=== PATIENT | male | born 1950 | race Caucasian/White ===

== ENCOUNTER 2020-02-18 09:15 | Outpatient (CLI) | payer MEDICARE, OTHER ==
[2020-02-18 13:00] LABS: #Basophils 0.1 thou/uL (0.0-0.2); #Eosinphils 0.4 thou/uL (0.0-0.7); #Lymphocytes 2.6 thou/uL (1.20-3.40); #Monocytes 0.6 thou/uL (0.11-0.59); %Basophils 0.7 % (0.0-1.0); %Eosinophils 4.5 % (0.0-10.0); %Lymphocytes 30.1 % (21.0-51.0); %Monocytes 6.8 % (0.0-10.0); %Neutrophils 57.9 % (42.0-75.0); Hemoglobin 15.9 g/dL (14.0-18.0); Mean Corpuscular HGB CONC 34.8 g/dL (32.0-36.0); Mean Corpuscular Hemoglobin 30.6 pg (27.0-31.0); Mean Corpuscular Volume 87.8 fL (78.0-98.0); Mean Platelet Volume 6.9 fL (7.4-10.4); Platelet Count 234 thou/uL (130-400); RBC Distribution Width 12.3 % (11.5-14.5); Red Blood Cell (RBC) Count 5.19 mill/uL (4.70-6.10); White Blood Cell (WBC) Count 8.6 thou/uL (4.8-10.8)
--- NOTE | 2020-02-18 13:37 | RAD ---
CHEST ONE VIEW: 02/18/20 at 1:41 p.m. HISTORY: Preoperative evaluation. FINDINGS: The heart size is normal. The aorta is tortuous. The lungs are expanded without lobar consolidation, pneumothoraces or pleural effusions. IMPRESSION: No acute process. POS: [facility]
[2020-02-18 13:56] LABS: ALT (SGPT) 19 U/L (8-55); AST (SGOT) 22 U/L (5-34); Albumin 4.2 g/dL (3.4-4.8); Alkaline Phosphatase 74 U/L (40-110); Anion Gap 11 mmol/L (10-20); BUN (Urea Nitrogen) 19 mg/dL (8.4-25.7); Bilirubin, Total 0.6 mg/dL (0.2-1.2); Calc. Creatinine Clearance 0 mL/min (70-130); Calcium 9.2 mg/dL (7.8-10.44); Carbon Dioxide 26 mmol/L (23-31); Chloride 107 mmol/L (98-107); Estimated GFR-MDRD 80; Globulin 2.6 g/dL (2.4-3.5); Glucose 102 mg/dL (80-115); Potassium 4.6 mmol/L (3.5-5.1); Protein, Total 6.8 g/dL (5.8-8.1); Sodium 139 mmol/L (136-145)
[2020-02-18 18:12] LABS: SARS-CoV-2 MS2 Positive; SARS-CoV-2 N Gene Negative; SARS-CoV-2 S Gene Negative; SARS-CoV-2 orf1ab Negative
== END 2020-02-18 09:16 | disposition home or self-care (01) ==
LOC: LABBT 09:15
PROVIDERS: ATTEND Internal Medicine Cardiovascular Disease
DX: Z01.818 Encounter for other preprocedural examination (principal); Z11.59 Encounter for screening for other viral diseases; R94.39 Abnormal result of other cardiovascular function study
CPT/HCPCS: 71045; 80053; 85025; 93005; U0003; 87635; 93010

== ENCOUNTER 2020-02-21 11:09 | Inpatient (IN) | payer MEDICARE, OTHER ==
[2020-02-18 12:04] VITALS: BMI 27.3
[~2020-02-21 11:09] MED LIST: Iopamidol 370 76% 100 ML VIAL ONE; Iopamidol 370 76% 50 ML VIAL FS ONE
[2020-02-21] MEDS ORDERED: Heparin 10,000 UNITS/1 ML VIAL ONE (13:24)
[2020-02-21] MEDS ORDERED: Fentanyl 100 MCG/2 ML VIAL ONE (13:50)
[2020-02-21] MEDS ORDERED: Midazolam HCl 2 mg/2 ml Vial ONE (13:50)
[2020-02-21] MEDS ORDERED: Protamine Sulfate 50 MG/5 ML VIAL ONE (14:13)
[2020-02-21] MEDS ORDERED: Nitroglycerin 0.4 MG TAB (25 Tab Bottle) SL PRN ×2 (14:39→14:41)
[2020-02-21] MEDS ORDERED: Sodium Chloride 0.9% 200 ML IV PRN ×2 (14:39→14:41)
[2020-02-21] MEDS ORDERED: Acetaminophen/Codeine 30-300mg Tablet PO PRN ×4 (14:39→14:41)
[2020-02-21] MEDS ORDERED: Sodium Chloride 0.9% 1,000 ML IV SCH (14:45)
[2020-02-21] MEDS ORDERED: Nitroglycerin 0.4 MG TAB (25 Tab Bottle) ONE (15:28)
[2020-02-21] MEDS ORDERED: Communication Order-Pharmacy FS SCH (15:39)
[2020-02-21] MEDS ORDERED: Morphine 2 MG/ML SYRINGE ONE (15:43)
[2020-02-21] MEDS ORDERED: Nitroglycerin 0.4 MG TAB (25 Tab Bottle) SL SCH (15:45)
[2020-02-21 15:50] LABS: Cardiac Risk 4.9 (Less than 4.5)
[2020-02-21] MEDS ORDERED: Docusate 100 MG CAP PO SCH (21:00)
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
[2020-02-22] MEDS ORDERED: Non-Formulary Item 1 EACH (Omega-3 Fatty Acids/Fish Oil [Fish Oil 1,000 Mg Capsule] 1 CAP PO SCH (09:00)
[2020-02-22] MEDS ORDERED: Non-Formulary Item 1 EACH (Glucos Sul 2kcl/Msm/Chond/C/Mn [Glucosamine Chondroitin Cap] 1 PO SCH (09:00)
[2020-02-22] MEDS ORDERED: Non-Formulary Item 1 EACH (Multivit-Min/Fa/Lycopen/Lutein [Centrum Silver Men Tablet] 1 T PO SCH (09:00)
[2020-02-22] MEDS ORDERED: Aspirin 81 mg Enteric Coated Tablet PO SCH (09:00)
[2020-02-22] MEDS ORDERED: Meloxicam 15 MG TAB PO SCH (09:00)
[2020-02-22] MEDS ORDERED: Papaverine 60 MG/2 ML VIAL ONE (09:16)
[2020-02-22] MEDS ORDERED: Protamine Sulfate 250 MG/25 ML VIAL ONE (09:16)
[2020-02-22] MEDS ORDERED: Heparin 5,000 UNITS/ML VIAL ONE (09:16)
[2020-02-22] MEDS ORDERED: Dexamethasone 20 MG/5 ML VIAL ONE (09:16)
[2020-02-22] MEDS ORDERED: Thrombin 5000 UNITS/5 ML VIAL ONE (09:16)
[2020-02-22] MEDS ORDERED: Sodium Bicarb 50 MEQ/50 ML Abboject 8.4% SYRINGE ONE (09:16)
[2020-02-22] MEDS ORDERED: Vecuronium 10 MG VIAL ONE ×3 (09:16→11:01)
[2020-02-22] MEDS ORDERED: Magnesium Sulfate 1 GM/2 ML VIAL ONE (09:16)
[2020-02-22] MEDS ORDERED: Ondansetron PF 4 MG/2 ML Vial ONE (09:16)
[2020-02-22] MEDS ORDERED: Aminocaproic Acid 5 GM/20 ML VIAL ONE (09:16)
[2020-02-22] MEDS ORDERED: Calcium Chloride 1 GM/10 ML Abboject SYRINGE ONE (09:16)
[2020-02-22] MEDS ORDERED: Ketorolac Tromethamine 30 MG/ML VIAL ONE (09:16)
[2020-02-22] MEDS ORDERED: Heparin 30,000 units/30 ml VIAL ONE (09:16)
[2020-02-22] MEDS ORDERED: EPHEDRINE 25 MG/5 ML SYRINGE ONE (09:16)
[2020-02-22] MEDS ORDERED: Potassium Chloride 60 MEQ/30 ML VIAL ONE (09:16)
[2020-02-22] MEDS ORDERED: Nitroglycerin 50 MG/250 ML BOT ONE (09:16)
[2020-02-22] MEDS ORDERED: Glycopyrrolate 0.2 MG/ML 5 ML SYRINGE ONE (09:16)
[2020-02-22] MEDS ORDERED: Lidocaine 2% PF 5 ML VIAL ONE (09:16)
[2020-02-22] MEDS ORDERED: Lidocaine 1% PF 5 ML VIAL ONE ×2 (09:16)
[2020-02-22] MEDS ORDERED: Cardioplegic Soln 1,000 ML BAG ONE (09:16)
[2020-02-22] MEDS ORDERED: PHENYLEPHRINE-NS 100 MCG/ML 10 ML SYRINGE ONE (09:16)
[2020-02-22] MEDS ORDERED: CEFAZOLIN 2 GM in Premix Bag 1 BAG IVPB SCH (10:30)
[2020-02-22] MEDS ORDERED: Midazolam HCl 2 mg/2 ml Vial ONE ×2 (10:37→11:01)
[2020-02-22] MEDS ORDERED: Albumin 5% 500 ML ONE (10:38)
[2020-02-22] MEDS ORDERED: Heparin 10,000 UNITS/1 ML VIAL 30,000 UNITS, Admixture Fee 1 EACH in Sodium Chloride 0.... IVPB SCH (10:45)
[2020-02-22] MEDS ORDERED: Midazolam HCl 5 mg/5 ml Vial ONE (11:01)
[2020-02-22] MEDS ORDERED: Fentanyl 100 MCG/2 ML VIAL ONE (11:01)
[2020-02-22] MEDS ORDERED: Dexmedetomidine 200 MCG/2 ML VIAL ONE (11:01)
[2020-02-22] MEDS ORDERED: Morphine 2 MG/ML SYRINGE SLOW IVP PRN (12:30)
[2020-02-22] MEDS ORDERED: Norepinephrine 8 MG/0.9% NS 250 ML IVPB PRN (12:30)
[2020-02-22] MEDS ORDERED: Post-Op Insulin Drip Protocol IVPB ONE (12:30)
[2020-02-22] MEDS ORDERED: Promethazine HCl 25 MG/ML VIAL IM PRN (12:30)
[2020-02-22] MEDS ORDERED: Bisacodyl 5 MG TAB PO PRN (12:30)
[2020-02-22] MEDS ORDERED: Acetaminophen 325 MG TAB PO PRN (12:30)
[2020-02-22] MEDS ORDERED: hydrALAZINE 20 MG/ML VIAL SLOW IVP PRN (12:30)
[2020-02-22] MEDS ORDERED: Nitroglycerin 50 MG/250 ML BOT 250 ML IVPB PRN (12:30)
[2020-02-22] MEDS ORDERED: Fentanyl 100 MCG/2 ML VIAL SLOW IVP PRN ×2 (12:30)
[2020-02-22] MEDS ORDERED: Hetastarch 6% 500 ML 500 ML IVPB PRN (12:30)
[2020-02-22] MEDS ORDERED: Ondansetron PF 4 MG/2 ML Vial IVP PRN (12:30)
[2020-02-22] MEDS ORDERED: niCARdipine 25 MG in Sodium Chloride 0.9% 250 ML 250 ML IVPB PRN (12:30)
[2020-02-22] MEDS ORDERED: Bisacodyl 10 MG SUPP PR PRN (12:30)
[2020-02-22] MEDS ORDERED: Potassium Chloride 20 MEQ/100 ML PREMIX BAG IVPB PRN (12:30)
[2020-02-22] MEDS ORDERED: Mag-Al 1200 mg/1200 mg/30 ML UDCUP PO PRN (12:30)
[2020-02-22] MEDS ORDERED: Guaifenesin DM 100-10/5 ML UDCUP PO PRN (12:30)
[2020-02-22] MEDS ORDERED: HUMULIN R 100 UNITS in Sodium Chloride 0.9% 100 ML IVPB SCH (13:41)
[2020-02-22] MEDS ORDERED: Dextrose 50% Abboject 50 ML SYRINGE SLOW IVP PRN (13:41)
[2020-02-22] MEDS ORDERED: Dextrose 5% in Water 1,000 ML IV PRN (13:41)
[2020-02-22] MEDS: Ketorolac Tromethamine 30 MG/ML VIAL IVP SCH ×3 (15:13→23:08)
[2020-02-22] MEDS: Sodium Chloride 0.9% 1,000 ML IV SCH ×2 (15:16→15:17)
[2020-02-22 17:00] LABS: #Eosinphils 0.1 thou/uL (0.0-0.7); #Lymphocytes 1.5 thou/uL (1.20-3.40); #Monocytes 0.8 thou/uL (0.11-0.59); #Neutrophils 16.2 thou/uL (1.40-6.50); %Basophils 0.2 % (0.0-1.0); %Eosinophils 0.8 % (0.0-10.0); %Lymphocytes 8.1 % (21.0-51.0); %Monocytes 4.1 % (0.0-10.0); %Neutrophils 86.8 % (42.0-75.0); Hemoglobin 14.3 g/dL (14.0-18.0); Mean Corpuscular HGB CONC 35.2 g/dL (32.0-36.0); Mean Corpuscular Hemoglobin 30.7 pg (27.0-31.0); Mean Corpuscular Volume 87.2 fL (78.0-98.0); Mean Platelet Volume 6.9 fL (7.4-10.4); Platelet Count 164 thou/uL (130-400); RBC Distribution Width 12.3 % (11.5-14.5); Red Blood Cell (RBC) Count 4.66 mill/uL (4.70-6.10); White Blood Cell (WBC) Count 18.6 thou/uL (4.8-10.8)
[2020-02-22 17:15] LABS: INR-International Normal Ratio 1.3; PTT 29.8 sec (22.9-36.1)
[2020-02-22 17:19] LABS: Anion Gap 12 mmol/L (10-20); BUN (Urea Nitrogen) 17 mg/dL (8.4-25.7); Calc. Creatinine Clearance 112 mL/min (70-130); Calcium 8.5 mg/dL (7.8-10.44); Carbon Dioxide 20 mmol/L (23-31); Chloride 112 mmol/L (98-107); Estimated GFR-MDRD Greater than 90; Glucose 151 mg/dL (80-115); Potassium 4.2 mmol/L (3.5-5.1); Sodium 140 mmol/L (136-145)
[2020-02-22] MEDS: Insulin Regular 300 UNITS/3 ML VIAL SC PRN ×2 (17:42→20:06)
[2020-02-22] MEDS: Docusate 100 MG CAP PO SCH (20:05)
[2020-02-22] MEDS: Atorvastatin Calcium 40 MG TAB PO SCH (20:06)
[2020-02-22] MEDS: HYDROcodone/Acetaminophen 5/325 mg Tablet PO PRN (20:10)
--- NOTE | 2020-02-22 20:12 | RAD ---
PORTABLE CHEST: 02/22/20 INDICATIONS: Postop sternotomy. COMPARISON: 02/18/20. Postop sternotomy changes are now noted. Right sided chest tube. Right sided central line appears ysabel quately positioned. The lung henson appear clear. No infiltrate or vascular congestion. IMPRESSION: Postop sternotomy changes. No acute lung process. POS: [facility]
[2020-02-22] MEDS ORDERED: Atorvastatin Calcium 10 MG TAB PO SCH (21:00)
[2020-02-22] MEDS ORDERED: Famotidine/PF 20 mg/2ml Vial SLOW IVP SCH (21:00)
--- NOTE | 2020-02-22 22:44 | OP ---
DATE OF PROCEDURE: 02/22/2020 PROCEDURES PERFORMED: Coronary artery bypass grafting x3 with right internal mammary artery to the posterolateral branch of the right coronary artery and reverse greater saphenous vein graft from the aorta to the PDA and from the aorta to the right anterior branch of the ramus intermedius. PREOPERATIVE DIAGNOSES: Coronary artery disease with unstable angina. POSTOPERATIVE DIAGNOSES: Coronary artery disease with unstable angina. CREDIT REVIEW MANAGER: Bal Mata MD ANESTHESIA: General endotracheal anesthesia. INDICATIONS: The patient is a 69-year-old man with a strongly positive family history of premature coronary artery disease. Over the last month, he has developed progressively severe epigastric and substernal tightness that was consistent with a class 2 to 3 angina. He is beginning to have frequent episodes of class 4 angina. He had an abnormal stress test and cardiac catheterization demonstrated two-vessel coronary artery disease. He had no significant left main or LAD system disease. He had a significant lesion in a bifurcated ramus, a significant lesion in the mid right coronary artery, and a subtotal long lesion in the proximal portion of the posterolateral branch of his RCA, which corresponds with inferior ischemia on his stress. After discussing treatment options, he is now taken to the operating room for surgical revascularization. FINDINGS: Pump time 66 minutes. Cross-clamp time 31 minutes. Slightly small, but good quality right EVITA with excellent flow. Good quality saphenous vein. The ramus intermedius was about a 2 to 2.5 mm vessel. There was fairly good quality, where it dove intramyocardially. There was heavy hard plaque at the ramus just proximal to its bifurcation point. The PDA was about a 1.5 to 2 mm thick-walled vessel and the posterolateral branch, where it was grafted, where it emerged from the fat pad at AV groove was about a 1.5 mm good quality vessel. The pericardium was closed. NARRATIVE REPORT: After informed consent was obtained, the patient was taken to the operating room, placed in supine position on the operating table. After the induction of general anesthesia, his left greater saphenous vein was ultrasonographically mapped and marked. He was placed in Trendelenburg and his right upper chest was prepped and draped in sterile fashion. A triple lumen central line kit was used to place right subclavian central line by the Seldinger technique. All 3 ports easily aspirated and flushed. The line was secured to the skin with suture. The patient's torso, groins, and lower extremities were prepped and draped in a sterile fashion. The greater saphenous vein was exposed just above the knee on the left side and then endoscopically harvested from there up to the groin. This prepared for use as a graft. The port site was closed in layers of subcutaneous and subcuticular Vicryl. The proximal stab incision for the ligation and division accessed ultimately was treated with Dermabond. A median sternotomy was performed. The right internal mammary artery was mobilized as a skeletonized in-situ graft from beyond its bifurcation up to near its origin from the subclavian artery through an extrapleural exposure. Ultimately, the pleura was opened along the hilum and near the diaphragmatic surface to allow for a tension-free lie of the mammary. The patient was heparinized and the mammary was ligated and divided distally. It had excellent flow. Once papaverine solution had been instilled intraluminally to relieve spasm, with that maneuver the mammary dilated nicely. The mammary bed was inspected for hemostasis and the EVITA retractor was replaced with a [place] retractor. The pericardium was opened and marsupialized. The aorta was palpated and was soft. A double concentric pursestring of 2-0 Ethibond was placed in ascending aorta within the pericardial reflection and a single pursestring was placed in the right atrial appendage. Aortic and venous cannulae were inserted and secured by their pursestrings. The plane between the aorta and the pulmonary artery was developed. Cardiopulmonary bypass was instituted and the patient was systemically cooled. The heart was examined and the vessels to be bypassed were identified. A cruciate incision was made in the right side of the pericardium just anterior to the junction of the inferior caval with the atrium through which the mammary could be passed. An aortic cross-clamp was applied and cardioplegia was administered through an aortic root needle. When arrest have been achieved, attention was turned to the ramus intermedius. It was exposed. At a point where it began to dive intramyocardially just distal some hard plaquing. Proximally the bifurcation point was identified and the anterior branch was opened with a [place] blade and Phuc scissors with the arteriotomy being extended proximally up to the bifurcation point of the ramus. Reverse greater saphenous vein was anastomosed there end-to-side with running 6-0 Prolene suture and the anastomosis was tested by flushing cold cardioplegia down the graft. Attention was then turned to the PDA. It was exposed and opened proximally and grafted in a similar fashion of the saphenous vein in 6-0 Prolene suture. The posterolateral branch of the right coronary artery was then opened near where it emerged on the epicardial surface just distal to the fat pad at the AV groove. The mammary was trimmed to length and spatulated and anastomosed there with running 7-0 Prolene and tacked to the epicardium with 6-0 Prolene. Aortic cross-clamp was placed with a partial occluding clamp and two aortotomies were made in the ascending aorta with a scalpel and punch. The PDA graft was brought along the right side of the heart near the AV groove and anastomosed to the more proximal aortotomy. The ramus graft was brought along the left side of the heart and anastomosed to the more distal aortotomy. Partial occluding clamp was removed and the vein grafts were de-aired and the bulldogs removed. From then, the anastomoses were inspected for hemostasis and the proximal vein graft anastomoses were marked with small hemoclips. The posterior pericardial drain and a right pleural drain were brought out through separate incisions and secured with suture. Right atrial and right ventricular temporary epicardial pacing wires were placed. The patient was then easily from cardiopulmonary bypass. Aortic and venous cannulae were removed and the pursestring secured. Protamine was administered. When hemostasis was adequate, an anterior mediastinal drain was placed. The pericardium was easily closed over it with running Vicryl. The cut surfaces of the sternum were treated with vancomycin paste and platelet-rich GPS. The sternum was reapproximated with #7 stainless steel wires. The fascia was closed over the wires with heavy Vicryl after having first irrigated the soft tissues and treated them with platelet poor GPS. Subcutaneous tissue was reapproximated with running 2-0 Vicryl and the skin was closed with a running 3-0 Vicryl subcuticular suture. Dermabond and dressings were applied. The patient was taken to the intensive care unit in stable condition. Job ID: [id number]
[2020-02-22 23:23] LABS: Hemoglobin 12.1 g/dL (14.0-18.0)
[2020-02-22 23:35] LABS: Potassium 4.3 mmol/L (3.5-5.1)
[2020-02-23] MEDS: HYDROcodone/Acetaminophen 5/325 mg Tablet PO PRN ×5 (00:50→20:40)
[2020-02-23] MEDS: Insulin Regular 300 UNITS/3 ML VIAL SC PRN ×2 (00:52→05:29)
[2020-02-23 04:46] LABS: #Lymphocytes 0.7 thou/uL (1.20-3.40); #Monocytes 0.7 thou/uL (0.11-0.59); #Neutrophils 12.2 thou/uL (1.40-6.50); %Eosinophils 0.1 % (0.0-10.0); %Lymphocytes 5.4 % (21.0-51.0); %Monocytes 5.1 % (0.0-10.0); %Neutrophils 89.4 % (42.0-75.0); Hemoglobin 12.1 g/dL (14.0-18.0); Mean Corpuscular HGB CONC 35.8 g/dL (32.0-36.0); Mean Corpuscular Hemoglobin 31.3 pg (27.0-31.0); Mean Corpuscular Volume 87.6 fL (78.0-98.0); Mean Platelet Volume 7.3 fL (7.4-10.4); Platelet Count 165 thou/uL (130-400); RBC Distribution Width 12.3 % (11.5-14.5); Red Blood Cell (RBC) Count 3.86 mill/uL (4.70-6.10); White Blood Cell (WBC) Count 13.6 thou/uL (4.8-10.8)
[2020-02-23 05:05] LABS: Anion Gap 10 mmol/L (10-20); BUN (Urea Nitrogen) 20 mg/dL (8.4-25.7); Calc. Creatinine Clearance 115 mL/min (70-130); Calcium 7.7 mg/dL (7.8-10.44); Carbon Dioxide 18 mmol/L (23-31); Chloride 115 mmol/L (98-107); Estimated GFR-MDRD Greater than 90; Glucose 131 mg/dL (80-115); Potassium 4.2 mmol/L (3.5-5.1); Sodium 139 mmol/L (136-145)
[2020-02-23] MEDS: Ketorolac Tromethamine 30 MG/ML VIAL IVP SCH (05:26)
--- NOTE | 2020-02-23 07:55 | RAD ---
Chest one view HISTORY: Surgery. Chest pain. Follow-up. COMPARISON: 02/22/2020. FINDINGS: Cardiac silhouette is magnified by projection. Pulmonary vasculature is unremarkable. Mediastinum is midline with postoperative changes apparent. Right thoracostomy tube and subclavian ce ntral venous catheter and mediastinal drains remain in place. Lungs are well aerated. No evidence of pneumothorax. Metallic wires projecting over the left abdomen are now apparent in favored to represent extrinsic mo nitoring device. IMPRESSION : Stable postoperative appearance of the chest.
[2020-02-23] MEDS ORDERED: Bisacodyl 5 MG TAB PO PRN (08:12)
[2020-02-23] MEDS ORDERED: Nitroglycerin 0.4 MG TAB (25 Tab Bottle) SL PRN (08:12)
[2020-02-23] MEDS ORDERED: Mag-Al 1200 mg/1200 mg/30 ML UDCUP PO PRN (08:12)
[2020-02-23] MEDS ORDERED: Zolpidem Tartrate 5 MG TAB PO PRN (08:12)
[2020-02-23] MEDS ORDERED: Mineral Oil ENEMA PR PRN (08:12)
[2020-02-23] MEDS ORDERED: Artificial Tears 18 DROP/0.9 ML EA EYE PRN (08:12)
[2020-02-23] MEDS ORDERED: diphenhydrAMINE 25 MG CAP PO PRN (08:12)
[2020-02-23] MEDS ORDERED: Guaifenesin DM 100-10/5 ML UDCUP PO PRN (08:12)
[2020-02-23] MEDS ORDERED: Bisacodyl 10 MG SUPP PR PRN (08:12)
[2020-02-23] MEDS: Aspirin Chewable 81 MG TAB PO SCH (08:31)
[2020-02-23] MEDS: Docusate 100 MG CAP PO SCH ×2 (08:32→20:40)
[2020-02-23] MEDS: Furosemide 40 MG TAB PO SCH ×2 (08:33→20:40)
[2020-02-23] MEDS: Meloxicam 15 MG TAB PO SCH (09:10)
--- NOTE | 2020-02-23 15:41 | EKG ---
Test Reason : Blood Pressure : / mmHG Vent. Rate : 057 BPM Atrial Rate : 057 BPM P-R Int : 196 ms QRS Dur : 120 ms QT Int : 462 ms P-R-T Axes : 049 -27 -22 degrees QTc Int : 449 ms Sinus bradycardia Right bundle branch block T wave abnormality, consider inferior ischemia Abnormal ECG Confirmed by RUSS JENNINGS ([id number]) on 02/23/2020 3:40:55 PM Referred By: JASON Confirmed By:RUSS JENNINGS
[2020-02-23] MEDS: Cyclobenzaprine 10 MG TAB PO PRN ×2 (16:37→22:33)
[2020-02-23] MEDS: Atorvastatin Calcium 40 MG TAB PO SCH (20:40)
[2020-02-24] MEDS: HYDROcodone/Acetaminophen 5/325 mg Tablet PO PRN ×4 (02:10→20:53)
[2020-02-24 04:48] LABS: #Lymphocytes 1.4 thou/uL (1.20-3.40); #Neutrophils 11.6 thou/uL (1.40-6.50); %Basophils 0.1 % (0.0-1.0); %Eosinophils 0.2 % (0.0-10.0); %Lymphocytes 9.6 % (21.0-51.0); %Monocytes 7.1 % (0.0-10.0); %Neutrophils 82.9 % (42.0-75.0); Hemoglobin 11.6 g/dL (14.0-18.0); Mean Corpuscular HGB CONC 33.7 g/dL (32.0-36.0); Mean Corpuscular Hemoglobin 29.9 pg (27.0-31.0); Mean Platelet Volume 7.1 fL (7.4-10.4); Platelet Count 159 thou/uL (130-400); RBC Distribution Width 12.5 % (11.5-14.5); Red Blood Cell (RBC) Count 3.86 mill/uL (4.70-6.10)
[2020-02-24 05:36] LABS: Anion Gap 11 mmol/L (10-20); BUN (Urea Nitrogen) 25 mg/dL (8.4-25.7); Calc. Creatinine Clearance 74 mL/min (70-130); Calcium 8.2 mg/dL (7.8-10.44); Carbon Dioxide 26 mmol/L (23-31); Chloride 105 mmol/L (98-107); Estimated GFR-MDRD 61; Glucose 167 mg/dL (80-115); Potassium 4.1 mmol/L (3.5-5.1); Sodium 138 mmol/L (136-145)
[2020-02-24] MEDS: Cyclobenzaprine 10 MG TAB PO PRN ×3 (06:15→20:53)
--- NOTE | 2020-02-24 07:35 | RAD ---
Chest one view HISTORY: Surgery. Follow-up. COMPARISON: 02/23/2020. FINDINGS: Cardiac silhouette is magnified by projection. Pulmonary vasculature is unremarkable. Mediastinum is midline with postoperative changes and aortic calcification. Right thoracostomy tube a nd other lines and tubes are unchanged in position. IMPRESSION : Stable postoperative appearance of the chest.
[2020-02-24] MEDS: Furosemide 40 MG TAB PO SCH ×2 (08:10→20:39)
[2020-02-24] MEDS: Meloxicam 15 MG TAB PO SCH (08:10)
[2020-02-24] MEDS: Docusate 100 MG CAP PO SCH ×2 (08:10→20:39)
[2020-02-24] MEDS: Aspirin Chewable 81 MG TAB PO SCH (08:10)
[2020-02-24] MEDS: Atorvastatin Calcium 40 MG TAB PO SCH (20:39)
[2020-02-25 05:01] LABS: #Eosinphils 0.2 thou/uL (0.0-0.7); #Lymphocytes 1.5 thou/uL (1.20-3.40); #Monocytes 0.8 thou/uL (0.11-0.59); #Neutrophils 8.3 thou/uL (1.40-6.50); %Basophils 0.4 % (0.0-1.0); %Eosinophils 1.8 % (0.0-10.0); %Lymphocytes 14.1 % (21.0-51.0); %Monocytes 7.6 % (0.0-10.0); %Neutrophils 76.1 % (42.0-75.0); Hemoglobin 11.9 g/dL (14.0-18.0); Mean Corpuscular Hemoglobin 30.3 pg (27.0-31.0); Mean Corpuscular Volume 89.2 fL (78.0-98.0); Mean Platelet Volume 7.6 fL (7.4-10.4); Platelet Count 144 thou/uL (130-400); RBC Distribution Width 12.2 % (11.5-14.5); Red Blood Cell (RBC) Count 3.94 mill/uL (4.70-6.10); White Blood Cell (WBC) Count 10.9 thou/uL (4.8-10.8)
[2020-02-25 05:22] LABS: Anion Gap 9 mmol/L (10-20); BUN (Urea Nitrogen) 17 mg/dL (8.4-25.7); Calc. Creatinine Clearance 100 mL/min (70-130); Carbon Dioxide 30 mmol/L (23-31); Chloride 103 mmol/L (98-107); Estimated GFR-MDRD Greater than 90; Glucose 135 mg/dL (80-115); Potassium 4.2 mmol/L (3.5-5.1); Sodium 138 mmol/L (136-145)
[2020-02-25] MEDS: Meloxicam 15 MG TAB PO SCH (08:17)
[2020-02-25] MEDS: Docusate 100 MG CAP PO SCH ×2 (08:17→21:03)
[2020-02-25] MEDS: Aspirin Chewable 81 MG TAB PO SCH (08:17)
--- NOTE | 2020-02-25 09:09 | RAD ---
SINGLE VIEW OF THE CHEST: COMPARISON: 02/24/2020. HISTORY Status post CABG. FINDINGS: A single view of the chest shows a normal-size cardiomediastinal silhouette. The patient is status p ost sternotomy. The central venous catheter is unchanged in position. Atelectasis is seen in the le ft lung base. The right-sided chest tube has been removed without evidence of pneumothorax. IMPRESSION: Left basilar atelectasis. POS: [facility]
[2020-02-25] MEDS: Atorvastatin Calcium 40 MG TAB PO SCH (21:03)
[2020-02-26 04:50] LABS: #Basophils 0.1 thou/uL (0.0-0.2); #Eosinphils 0.4 thou/uL (0.0-0.7); #Lymphocytes 1.9 thou/uL (1.20-3.40); #Monocytes 0.6 thou/uL (0.11-0.59); #Neutrophils 5.1 thou/uL (1.40-6.50); %Basophils 0.8 % (0.0-1.0); %Lymphocytes 23.6 % (21.0-51.0); %Monocytes 7.9 % (0.0-10.0); %Neutrophils 62.7 % (42.0-75.0); Hemoglobin 11.9 g/dL (14.0-18.0); Mean Corpuscular HGB CONC 35.2 g/dL (32.0-36.0); Mean Corpuscular Hemoglobin 31.4 pg (27.0-31.0); Mean Corpuscular Volume 89.1 fL (78.0-98.0); Mean Platelet Volume 7.5 fL (7.4-10.4); Platelet Count 164 thou/uL (130-400); RBC Distribution Width 12.1 % (11.5-14.5); Red Blood Cell (RBC) Count 3.78 mill/uL (4.70-6.10); White Blood Cell (WBC) Count 8.1 thou/uL (4.8-10.8)
[2020-02-26 05:10] LABS: Anion Gap 9 mmol/L (10-20); BUN (Urea Nitrogen) 12 mg/dL (8.4-25.7); Calc. Creatinine Clearance 107 mL/min (70-130); Calcium 8.1 mg/dL (7.8-10.44); Carbon Dioxide 31 mmol/L (23-31); Chloride 104 mmol/L (98-107); Estimated GFR-MDRD Greater than 90; Glucose 118 mg/dL (80-115); Potassium 3.9 mmol/L (3.5-5.1); Sodium 140 mmol/L (136-145)
[2020-02-26 07:49] VITALS: BP 138/71; TEMP 98.3
[2020-02-26] MEDS: Meloxicam 15 MG TAB PO SCH (07:49)
[2020-02-26] MEDS: Docusate 100 MG CAP PO SCH (07:49)
[2020-02-26] MEDS: Aspirin Chewable 81 MG TAB PO SCH (07:50)
--- NOTE | 2020-02-28 11:17 | DIS ---
DATE OF ADMISSION: 02/21/2020 DATE OF DISCHARGE: 02/26/2020 PRINCIPAL DIAGNOSIS: Coronary artery disease with unstable angina. PROCEDURES PERFORMED: 1. Cardiac catheterization, 02/21/2020. 2. Coronary artery bypass grafting x3; the right internal mammary artery to the posterolateral branch of the right coronary artery and reverse greater saphenous vein grafts from the aorta to the posterior descending artery and from the aorta to the anterior branch of the ramus intermedius, 02/22/2020. HISTORY OF PRESENT ILLNESS AND HOSPITAL COURSE: The patient is a 69-year-old man with a strongly positive family history of premature coronary artery disease, who has recently developed progressively severe epigastric and substernal tightness suggestive of angina. It had progressed from exertional angina to having frequent episodes of angina at rest and abnormal stress test led to cardiac catheterization, which demonstrated severe 2-vessel coronary artery disease. He had no significant disease in his left main or LAD system. He had a diminutive circumflex system proper and the large bifurcating ramus intermedius that had a significant lesion in it. He had significant mid right coronary artery disease and a long subtotal lesion in the proximal portion of the posterolateral branch of his right coronary artery, which was an extensively arborized system. He underwent surgical revascularization the day following his cardiac catheterization and did well postoperatively. He was restarted on his home dose of Toprol 25 mg a day and transferred out of the intensive care unit on postoperative day 1. His chest tubes were removed the afternoon of postoperative day 2. Back spasms related to some underlying lumbar disease brought under control with Flexeril, and with discontinuation of his chest tubes and his Nieto and control of his back spasms, his mobility significantly improved, and he was discharged home on postoperative day 4. Job ID: [id number]
== END 2020-02-26 11:05 | disposition home or self-care (01) | DRG 234 ==
LOC: CCL 11:09 → 2NO 16:12 → CCU 02-22 13:03 → 2NO 02-23 09:43
PROVIDERS: ADMIT Internal Medicine Cardiovascular Disease; ATTEND Internal Medicine Cardiovascular Disease
PROC: 4A023N7 Measurement of Cardiac Sampling and Pressure, Left Heart, Percutaneous Approach (ICD-10-PCS; principal; 2020-02-19)
PROC: B2111ZZ Fluoroscopy of Multiple Coronary Arteries using Low Osmolar Contrast (ICD-10-PCS; 2020-02-19)
PROC: B2151ZZ Fluoroscopy of Left Heart using Low Osmolar Contrast (ICD-10-PCS; 2020-02-19)
PROC: 4A033BC Measurement of Arterial Pressure, Coronary, Percutaneous Approach (ICD-10-PCS; 2020-02-19)
PROC: 02100Z8 Bypass Coronary Artery, One Artery from Right Internal Mammary, Open Approach (ICD-10-PCS; 2020-02-22)
PROC: 021109W Bypass Coronary Artery, Two Arteries from Aorta with Autologous Venous Tissue, Open Approach (ICD-10-PCS; 2020-02-22)
PROC: 06BQ4ZZ Excision of Left Saphenous Vein, Percutaneous Endoscopic Approach (ICD-10-PCS; 2020-02-22)
PROC: 5A1221Z Performance of Cardiac Output, Continuous (ICD-10-PCS; 2020-02-22)
DX: I25.110 Atherosclerotic heart disease of native coronary artery with unstable angina pectoris (principal); Z11.59 Encounter for screening for other viral diseases; I10 Essential (primary) hypertension; E78.5 Hyperlipidemia, unspecified; G47.30 Sleep apnea, unspecified; G89.29 Other chronic pain; Z87.891 Personal history of nicotine dependence; Z79.899 Other long term (current) drug therapy
CPT/HCPCS: 36415; 36416; 36430; 71045; 80048; 80053; 80061; 85025; 85347; 85610; 85730; 86850; 86900; 86901; 87635; 93005; 93010; 93458; 93798; 94760; 99152; J0690; J1100; J1642; J1644; J1815; J1885; J2001; J2250; J2270; J2405; J2440; J2720; J3010; J3370; J3475; J3480; J7050; P9045; Q9967; S0017; S0028; U0003

== ENCOUNTER 2020-12-25 14:46 | Outpatient (CLI) | payer MEDICARE ==
[2020-12-25 16:12] LABS: #Eosinphils 0.4 10x3/uL (0.0-0.5); #Monocytes 0.6 10x3/uL (0.0-1.1); #Neutrophils 4.8 10x3/uL (1.5-8.4); %Basophils 0.4 % (0.0-2.0); %Eosinophils 4.2 % (0.0-6.0); %Lymphocytes 29.7 % (18.0-47.0); %Monocytes 7.7 % (0.0-10.0); %Neutrophils 57.6 % (40.0-75.0); Hemoglobin 15.8 g/dL (13.5-17.5); Mean Corpuscular HGB CONC 34.9 g/dL (32.0-36.0); Mean Corpuscular Hemoglobin 29.9 pg (27.0-33.0); Mean Corpuscular Volume 85.8 fl (81.2-95.1); Mean Platelet Volume 9.8 fl (7.4-10.4); Platelet Count 174 10x3/uL (150-450); RBC Distribution Width 12.6 % (11.5-14.5); Red Blood Cell (RBC) Count 5.28 10x6/uL (4.32-5.72); White Blood Cell (WBC) Count 8.3 10x3/uL (3.5-10.5)
[2020-12-26 02:11] LABS: SARS-CoV-2 PCR by NAA Not Detected (NotDetected)
== END 2020-12-25 14:47 | disposition home or self-care (01) ==
LOC: LABBT 14:46
PROVIDERS: ATTEND Orthopaedic Surgery
DX: Z01.818 Encounter for other preprocedural examination (principal); G56.02 Carpal tunnel syndrome, left upper limb; Z20.822 Contact with and (suspected) exposure to COVID-19
CPT/HCPCS: 85025; 93005; U0003; U0005; 87635; 93010

== ENCOUNTER 2020-12-28 06:22 | Day surgery (SDC) | payer MEDICARE ==
[2020-12-27 11:53] VITALS: BMI 31.0
[2020-12-28] MEDS ORDERED: Lidocaine 1% w/Epinephrine 1:100K 20 ML VIAL ONE (06:41)
[2020-12-28] MEDS ORDERED: Fentanyl 100 MCG/2 ML VIAL ONE (06:45)
[2020-12-28] MEDS ORDERED: Ondansetron PF 4 MG/2 ML Vial ONE (07:21)
[2020-12-28] MEDS ORDERED: PROPOFOL 200 MG/20 ML VIAL ONE (07:21)
[2020-12-28] MEDS ORDERED: Lidocaine 1% PF 5 ML VIAL ONE (07:21)
[2020-12-28] MEDS ORDERED: Dexamethasone 20 MG/5 ML VIAL ONE (07:21)
[2020-12-28] MEDS ORDERED: ePHEDrine Sulfate 50 MG/10 ML VIAL ONE (07:21)
== END 2020-12-28 09:49 | disposition home or self-care (01) ==
LOC: SDC 06:22
PROVIDERS: ATTEND Orthopaedic Surgery
PROC: 01N50ZZ Release Median Nerve, Open Approach (ICD-10-PCS; principal; 2020-12-28)
DX: G56.02 Carpal tunnel syndrome, left upper limb (principal); M19.042 Primary osteoarthritis, left hand; E78.5 Hyperlipidemia, unspecified; M19.90 Unspecified osteoarthritis, unspecified site; I25.10 Atherosclerotic heart disease of native coronary artery without angina pectoris; G89.29 Other chronic pain; M54.9 Dorsalgia, unspecified; Z79.82 Long term (current) use of aspirin; Z79.899 Other long term (current) drug therapy; Z87.891 Personal history of nicotine dependence; Z95.1 Presence of aortocoronary bypass graft; Z95.5 Presence of coronary angioplasty implant and graft
CPT/HCPCS: J0690; J1100; J2405; J2704; J3010

== ENCOUNTER 2022-05-13 11:38 | Outpatient (CLI) | payer MEDICARE | END 2022-05-13 11:39 | disposition home or self-care (01) | LOC: LABBT 11:38 | PROVIDERS: ATTEND Orthopaedic Surgery Hand Surgery | DX: Z01.810 Encounter for preprocedural cardiovascular examination (principal); S64.492A Injury of digital nerve of right middle finger, initial encounter | CPT/HCPCS: 93005; 93010 ==

== ENCOUNTER 2022-05-15 11:21 | Day surgery (SDC) | payer MEDICARE ==
[2022-05-13 13:14] VITALS: BMI 32.1
[2022-05-15] MEDS ORDERED: fentaNYL Citrate/PF 100 MCG/2 ML SYRINGE ONE (12:07)
[2022-05-15] MEDS ORDERED: Betamet Acet/Betamet Na Ph 30 MG/5 ML VIAL ONE (12:48)
[2022-05-15] MEDS ORDERED: Bupivacaine PF 0.5% 30 ML VIAL ONE (12:48)
[2022-05-15] MEDS ORDERED: Neomycin-Polymyxin 1 ML AMP ONE (12:48)
[2022-05-15] MEDS ORDERED: Bacitracin Zinc Ointment 30 gm TUBE ONE (12:48)
[2022-05-15] MEDS ORDERED: CEFAZOLIN 2 GM VIAL ONE (13:04)
[2022-05-15] MEDS ORDERED: Sodium Chloride 0.9% 100 ML ONE (13:04)
[2022-05-15] MEDS ORDERED: Neostigmine Methylsulfate 3 MG/3 ML SYRINGE ONE (13:50)
[2022-05-15] MEDS ORDERED: Rocuronium Bromide 10 MG/ML (10ML VIAL) ONE (13:50)
[2022-05-15] MEDS ORDERED: ePHEDrine 50 MG/ML VIAL ONE (13:50)
[2022-05-15] MEDS ORDERED: Lidocaine 1% MPF 2 ML VIAL ONE (13:50)
[2022-05-15] MEDS ORDERED: Ondansetron PF 4 MG/2 ML Vial ONE (13:50)
[2022-05-15] MEDS ORDERED: Glycopyrrolate 0.2 MG/ML 5 ML SYRINGE ONE (13:50)
[2022-05-15] MEDS ORDERED: Phenylephrine 10 MG/ML VIAL ONE (13:50)
[2022-05-15] MEDS ORDERED: PROPOFOL 200 MG/20 ML VIAL ONE (13:50)
[2022-05-15] MEDS ORDERED: Dexamethasone 20 MG/5 ML VIAL ONE (13:50)
[2022-05-15] MEDS ORDERED: Ketorolac Tromethamine 30 MG/ML VIAL ONE (13:50)
== END 2022-05-15 18:18 | disposition home or self-care (01) ==
LOC: SDC 11:21
PROVIDERS: ATTEND Orthopaedic Surgery Hand Surgery
PROC: 0LQ70ZZ Repair Right Hand Tendon, Open Approach (ICD-10-PCS; principal; 2022-05-15)
PROC: 01Q60ZZ Repair Radial Nerve, Open Approach (ICD-10-PCS; 2022-05-15)
DX: S66.122A Laceration of flexor muscle, fascia and tendon of right middle finger at wrist and hand level, initial encounter (principal); S64.492A Injury of digital nerve of right middle finger, initial encounter; S61.202A Unspecified open wound of right middle finger without damage to nail, initial encounter; E78.5 Hyperlipidemia, unspecified; M19.90 Unspecified osteoarthritis, unspecified site; G89.29 Other chronic pain; M54.9 Dorsalgia, unspecified; I25.10 Atherosclerotic heart disease of native coronary artery without angina pectoris; Z87.891 Personal history of nicotine dependence; Z79.1 Long term (current) use of non-steroidal anti-inflammatories (NSAID); Z79.82 Long term (current) use of aspirin; Z79.899 Other long term (current) drug therapy; Z95.1 Presence of aortocoronary bypass graft; W26.0XXA Contact with knife, initial encounter
CPT/HCPCS: J0690; J0702; J1100; J1885; J2370; J2405; J2704; J3490; S0020

== ENCOUNTER 2023-11-05 14:51 | Outpatient (CLI) | payer MEDICARE ==
[~2023-11-05 14:51] MED LIST changes: -Iopamidol 370 76% 50 ML VIAL FS ONE
== END 2023-11-05 14:52 | disposition home or self-care (01) ==
LOC: CT 14:51
PROVIDERS: ATTEND Internal Medicine Cardiovascular Disease
DX: I74.3 Embolism and thrombosis of arteries of the lower extremities (principal); I70.0 Atherosclerosis of aorta; E27.8 Other specified disorders of adrenal gland; K76.89 Other specified diseases of liver
CPT/HCPCS: 75635; 82565; Q9967